=== PATIENT | female | born 2000 ===

== ENCOUNTER 2024-02-05 23:02 | Emergency (ER) | payer SELFPAY ==
[~2024-02-05] VITALS: Ht 162.6 cm; Wt 76.1 kg
[2024-02-06 02:56] VITALS: BP 115/70; TEMP 97; O2SAT 97
== END 2024-02-06 04:49 | disposition left against medical advice (07) ==
LOC: M ED 23:02
DX: Z53.21 Procedure and treatment not carried out due to patient leaving prior to being seen by health care provider (principal)